=== PATIENT | female | born 1960 | race Caucasian/White ===

== ENCOUNTER → 2018-10-04 | Outpatient (CLI) | payer BC, OTHER ==
[2018-10-05 12:37] LABS: ANTICHROMATIN AB <0.2 AI (0.0-0.9); CENTROMERE B AB <0.2 AI (0.0-0.9); JO-1 ANTIBODY (ANACOMP) <0.2 AI (0.0-0.9); SJOGREN'S ANTI-SS-B AB <0.2 AI (0.0-0.9); SJOGREN'S SS-A ANTIBODY <0.2 AI (0.0-0.9)
[2018-10-06 07:28] LABS: DNA DOUBLE STRAND ANTIBODY ANA 2 IU/mL (0-9)
== END ==
LOC: OD 11:47
PROVIDERS: ATTEND Otolaryngology
DX: K13.0 Diseases of lips (principal); M35.00 Sjogren syndrome, unspecified
CPT/HCPCS: 36415; 86140; 86225; 86235; 86430

== ENCOUNTER 2018-10-15 08:46 | Day surgery (SDC) | payer BC, OTHER ==
[2018-10-15] MEDS ORDERED: CHLORHEXIDINE GLUCONATE 0.12% ORAL RINSE 15 ML UDC ONE (09:49)
[2018-10-15] MEDS ORDERED: FENTANYL CITRATE INJ/PF 100 MCG/2 ML AMPUL ONE (09:55)
[2018-10-15] MEDS ORDERED: MIDAZOLAM 2 MG/2 ML INJ ONE (09:55)
[2018-10-15] MEDS ORDERED: ONDANSETRON HCL INJ/PF 4 MG/2 ML SDV ONE (09:55)
[2018-10-15] MEDS ORDERED: PROPOFOL INJ 200 MG/20 ML VIAL IV ONE (09:56)
[2018-10-15] MEDS ORDERED: LIDOCAINE 2%/EPINEPHRINE INJ 1.7 ML CARTRIDGE ONE (09:58)
[2018-10-15] MEDS ORDERED: LIDOCAINE 2%/EPINEPHRINE INJ 20 ML VIAL ONE (10:24)
--- NOTE | 2018-10-15 11:18 | [facility] OPERATIVE REPORT E ---
[facility] Operative Report NAME: KELVIN JUNIOR AGE: 58Y DATE OF SURGERY: 10/15/2018 ROOM: HISTORY: This 58-year-old female presents with a history of 2 masses involving the upper lip and 1 of the lower lip. The masses of the upper lip are on the right and left side and the lower lip one is on the right side. She presents for excisional biopsy of these masses. Informed consent was obtained from the patient. PREOPERATIVE DIAGNOSES: 1. Right upper lip mass. 2. Left upper lip mass. 3. Right lower lip mass. POSTOPERATIVE DIAGNOSES: 1. Right upper lip mass. 2. Left upper lip mass. 3. Right lower lip mass. PROCEDURE: Excisional biopsy of upper/lower lip masses (total of 3 masses excised). SURGEON: SELMA TRAN MD ANESTHESIA: MAC. DESCRIPTION OF PROCEDURE: After receiving informed consent from the patient, she was taken to the operating room and placed supine on the operating table. After successful induction with MAC and IV sedation, the planned excision sites were injected with 2% Xylocaine with 1:100,000 epinephrine. The patient was then prepped and draped in the usual sterile fashion. Starting with the lower lip the Bovie cautery set on 8 was used to excise that lower lip mass. It appeared to be a mucocele. This was removed en toto and sent for histopathologic examination. The wound was closed with 4-0 chromic. Similar procedures were done for the right and left upper lip masses. 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 The excisional sites were closed using 4-0 chromic. Once this was done the patient was then given back to Anesthesia who successfully awoke the patient from the anesthetic. She was then transferred to the postanesthesia care unit in stable condition, spontaneous respirations, no complications. ESTIMATED BLOOD LOSS: Minimal. FLUIDS: 200 mL crystalloid. DISPOSITION: The patient was transferred to the postanesthesia care unit in stable condition, spontaneous respirations, no complications. DICTATING PHYSICIAN: SELMA TRAN M.D. [id number] PHY#: [id number] ID: [id number] JOB#: [id number] ACCT: [id number] cc:SELMA TRAN MD > [facility]
[2018-10-16] MEDS ORDERED: AMPICILLIN SODIUM 2 GM in NORMAL SALINE 100 ML IV PRN (05:00)
== END 2018-10-15 11:31 | disposition home or self-care (01) ==
LOC: SC 08:46
PROVIDERS: ATTEND Otolaryngology
DX: K13.0 Diseases of lips (principal); M35.00 Sjogren syndrome, unspecified; Z88.8 Allergy status to other drugs, medicaments and biological substances
CPT/HCPCS: 88305 ×2; 40490; J0290; J2250; J3490 ×2; J3010; J2405; J2704; 300